=== PATIENT | male | born 1955 | race Caucasian/White ===

== ENCOUNTER 2024-05-20 11:22 | Emergency (ER) | payer OTHER ==
[~2024-05-20] VITALS: Ht 190.5 cm; Wt 92.9 kg
[2024-05-20] MEDS ORDERED: IBUPROFEN800 MG PO (11:43)
[2024-05-20] MEDS ORDERED: TAMSULOSIN HCL0.4 MG PO (11:43)
[2024-05-20] MEDS ORDERED: CYCLOBENZAPRINE HCL 10 MG TAB PO ONE (11:45)
[2024-05-20] MEDS ORDERED: OXYCODONE/APAP 5/325 TAB PO ONE (11:45)
[2024-05-20] MEDS ORDERED: KETOROLAC TROMETHAMINE 30 MG/ML VIAL IM ONE (11:45)
[2024-05-20] MEDS ORDERED: LIDOCAINE HCL 4% 1 EACH PATCH TD ONE (11:45)
[2024-05-20] MEDS ORDERED: KETOROLAC TROME10 MG PO (12:55)
[2024-05-20] MEDS ORDERED: CYCLOBENZAPRINE10 MG PO (12:55)
[2024-05-20] MEDS ORDERED: LIDODERM1 EACH TOP (12:55)
[2024-05-20 13:01] VITALS: BP 141/84
[2024-05-20] MEDS ORDERED: LIDOCAINE PATCH REMOVAL 1 EA TD SCH (21:00)
== END 2024-05-20 13:00 | disposition home or self-care (01) ==
LOC: ED 11:22
DX: M54.50 Low back pain, unspecified (principal); Z79.899 Other long term (current) drug therapy
CPT/HCPCS: 96372; 99283; A9270; J1885